=== PATIENT | female | born 1995 | race Caucasian/White ===

== ENCOUNTER 2023-06-12 09:06 | Outpatient (AMB) | payer OTHER, SELFPAY ==
--- NOTE | 2023-06-12 09:08 | A.OFFPC_ITS ---
Vital Signs 06/12/23 09:09 Height 5 ft 5 in Weight 206 lb BMI 34.3 BP 118/80 Blood Pressure Location Lt brachial Position Sitting Intake Visit Reasons: Turner Off Request PE Intake Note: New patient, physical exam Meeting Planner Required: No Accompanied by: Self / Same As Patient Allergies No Known Allergies Allergy (Verified 06/12/23 09:25) Medication List - Last Reconciled 06/12/23 by Purvi Delarosa MD No Known Home Meds Tobacco use date assessed: 06/12/23 Dental Screening Dental Screen Date: 06/12/23 Did you have a dental visit in the last 12 months?: No Did you have a dental problem in the last 6 months where you did not have access to dental care?: No Was dental information given to patient?: Patient has dentist HPI HPI Comments History of Present Illness Details This is a 27-year-old female that comes for her physical exam. No acute complaints. As per patient has never had a Pap smear but has an IUD place. No chest pain or shortness of breath. [facility] Surgical History No pertinent past surgical history Family History (Updated 06/12/23 @ 09:31 by Purvi Delarosa MD) Mother Hypertension Father No problems noted. Family/Other Substance use disorder Mental health disorder Maternal Grandmother Liver cancer Social History Housing: House Alcohol intake: never Patient Tobacco Use Status: Never used Tobacco e-Cigarette/Vaping Use: Never Used Second Hand Smoke Exposure: No service: No Current occupational status: employed Current occupational exposures/hazards: No Cognitive needs: No Hearing needs: No Vision needs: No Questionnaire PHQ-9 Over the last 2 weeks, how often have you been bothered by any of the following problems? 1. Little interest or pleasure in doing things: not at all 2. Feeling down, depressed, or hopeless: not at all 3. Trouble falling or staying asleep, or sleeping too much: not at all 4. Feeling tired or having little energy: not at all 5. Poor appetite or overeating: not at all 6. Feeling bad about yourself - or that you are a failure or have let yourself or your family down: not at all 7. Trouble concentrating on things, such as reading the newspaper or watching television: not at all 8. Moving or speaking so slowly that other people could have noticed. Or the o pposite - being so fidgety or restless that you have been moving around a lot more than usual: not at all 9. Thoughts that you would be better off or of hurting yourself in some way: not at all Total score: 0 Depression Screening Interpretation: Negative Depression Screening Done: Yes 39635 - PHQ-9 Billing: Yes Source: Developed by Drs. Kunal Su, Rashmi Saleem, Jonathan Diaz and colleagues, with an educational hadley from [employer]. Thrive Questionnaire Date Thrive assessed: 06/12/23 I am a: Patient What is your living situation today?: I have a steady place to live Within the past 12 months, did the food you bought not last and you didn't have the money to get more?: Never true Within the past 12 months, did you worry whether your food would run out before you got money to buy more?: Never true Do you have trouble paying for medicines?: No Do you have trouble getting transportation to medical appointments?: No Do you have trouble paying your heating and electricity bill?: No Do you have trouble taking care of your child, family member or friend?: No Do you have trouble with day-to-day activities such as bathing, preparing meals, shopping, managing finances, etc.?: No Are you currently unemployed and looking for a job?: No Are you interested in more education?: No Please select the resources that you would like help with: None Currently or been in a relationship where the following occur: no concerns reported THRIVE Score: 0 AUDIT C Alcohol Use Questionnaire (AUDIT-C) 1. How often do you have a drink containing alcohol?: Never Total Score: 0 Score Reviewed/Action Taken: No RODGER-7 AMB Questionnaire RODGER-7 Date RODGER - 7 assessed: 06/12/23 Feeling nervous, anxious, or on edge: 0 = Not at all Not being able to stop or control worryin = Not at all Worrying too much about different things: 0 = Not at all Trouble relaxin = Not at all Being so restless that it is hard to sit still: 0 = Not at all Becoming easily annoyed or irritable: 0 = Not at all Feeling afraid as if something awful might happen: 0 = Not at all Total RODGER-7 score (0-4 normal; 5-9 mild; 10-14 moderate; 15-21 severe): 0 Source: Developed by Drs. Kunal Su, Rashmi Saleem, Jonathan Diaz and colleagues, with an educational hadley from [employer]. RODGER-7 Assessment Billing RODGER-7 Assessment Tool: RODGER-7 Assessment 53687 Review of Systems Const All systems reviewed & are unremarkable except as noted in HPI and below Eyes Reports no additional complaints, Denies change in vision and Denies other visual disturbances Card Denies chest pain at rest, Denies chest pain with activity, Denies edema, Denies irregular heart rhythm, Denies claudication, Denies dyspnea, Denies dyspnea on exertion, Denies orthopnea, Denies paroxysmal nocturnal dyspnea and Denies slow heart rate Resp Denies cough, Denies dyspnea and Denies dyspnea on exertion GI Denies abdominal pain, Denies change in bowel habits, Denies excessive flatus, Denies nausea and Denies vomiting Denies urinary incontinence, Denies urinary hesitancy and Denies urinary urgency Neuro Denies confusion Psych Denies confusion Physical exam (Primary Care) Vital Signs: Last Vital Signs BP 118/80 06/12/23 09:09 BMI result Body Mass Index 34.3 Tobacco/Smoking Status: Tobacco use Status Tobacco use date assessed 06/12/23 06/12/23 09:16 Patient Tobacco Use Status Never used Tobacco 06/12/23 09:16 e-Cigarette/Vaping Use Never Used 06/12/23 09:16 PHQ-9: PHQ-9 Score PHQ-9: Total score 0 06/12/23 09:16 Depression Screening Interpretation: Negative Thrive Assessment: Date of Thrive Assessment Date Thrive assessed 06/12/23 06/12/23 09:16 Currently or been in a relationship where the following occur: no concerns reported Const General: No confusion Orientation/consciousness: patient oriented x3 and No confusion HENMT Head: Yes normal to inspection, Yes normocephalic and Yes atraumatic Ears: external ears normal Eyes General: appearance normal, both eyes and all related structures Eyelids: Yes eyelids normal Conjunctivae: conjunctivae normal Neck Neck: Yes normal visual inspection and Yes supple Resp Effort & Inspection: normal respiratory effort Auscultation: clear to auscultation bilaterally Cardio Jugular venous distension: no JVD Rate: regular rate Rhythm: regular rhythm Heart sounds: S1 normal heart sound present and S2 normal heart sound present GI Inspection: Yes normal to inspection Palpation (GI): Soft to palpation and nontender Auscultation: normal bowel sounds Skin General skin exam: no rashes or lesions noted Neuro General: patient oriented x3, no focal motor deficits and No confusion Extrem General: Yes full ROM Psych Appearance: grossly normal Assessment and Plan Assessment & Plan (1) Physical exam: Code(s): Z00.00 - Encounter for general adult medical examination without abnormal findings Plan: Repeat in a year. Orders: Orders Lipid Panel Today Z00.00 - Encounter for general adult medical examination without abnormal findings Comprehensive [place]. Panel Fast Today Z00.00 - Encounter for general adult medical examination without abnormal findings Referrals RETURNED CASE INSPECTOR Referral Z12.4 - Encounter for screening for malignant neoplasm of cervix Coding Level of Care Code Est Pt Prev Care 18-39y(59482) Diagnoses Physical exam Z00.00 Additional Codes RODGER-7 Assessment Billing - RODGER-7 Assessment Tool: RODGER-7 Assessment 58643 ([id number]) Time Spent (min) 30
[2023-06-12 09:09] VITALS: BP 118/80; BMI 34.3
== END 2023-06-12 09:39 | disposition home or self-care (01) ==
PROVIDERS: PCP Internal Medicine; Visit Provider Internal Medicine
DX: Z00.00 Encounter for general adult medical examination without abnormal findings (principal)
CPT/HCPCS: 99395

== ENCOUNTER 2024-06-23 08:28 | Outpatient (AMB) | payer OTHER, SELFPAY ==
--- NOTE | 2024-06-23 08:35 | MHC.PC.OV ---
Vital Signs 06/23/24 08:37 Height 5 ft 5 in Weight 203 lb BMI 33.8 BP 120/80 Blood Pressure Location Lt brachial Position Sitting Intake Visit Reasons: PE Intake Note: Patient here for a physical exam Counseling Center Director Required: No Accompanied by: Self / Same As Patient Allergies No Known Allergies Allergy (Verified 06/23/24 08:43) Medication List - Last Reconciled 06/23/24 by Purvi Delarosa MD No Known Home Meds Tobacco use date assessed: 06/23/24 Dental Screening Dental Screen Date: 06/23/24 Did you have a dental visit in the last 12 months?: No Did you have a dental problem in the last 6 months where you did not have access to dental care?: No Was dental information given to patient?: Patient has dentist HPI HPI Comments History of Present Illness Details The patient is a 28-year-old female presenting for a wellness check and physical examination. She reports a history of depression with a PHQ-9 score of 12, indicating moderate depression. She has a therapist but has not fully communicated her symptoms to them. The patient also experiences anxiety and reports episodes of chest pain and shortness of breath occurring at rest, which have been episodic and started recently. She has no known allergies and is not on any medications. She denies smoking or alcohol consumption. No past surgeries or significant childhood illnesses were mentioned. An unintentional weight gain was noted, as she started working on weight loss from 207 pounds. The patient mentioned having a lump in her neck which she noticed about a month ago. This lump causes occasional pain. No past documentation of related tests or procedures was provided. Family history is pertinent for essential hypertension and recently diagnosed diabetes in her mother. Her father when she was [age], with no known medical history. - Tdap vaccine last administered in 2015; next due in 2025. - Up-to-date with Pap smear, last performed last year. - Discussion of weight management, with emphasis on obesity reduction. - Blood work ordered for glucose, kidney, liver function, and cholesterol levels. [facility] Surgical History No pertinent past surgical history Family History (Updated 06/23/24 @ 08:48 by Purvi Delarosa MD) Mother Hypertension Diabetes mellitus Father No problems noted. Family/Other Substance use disorder Mental health disorder Maternal Grandmother Liver cancer Social History Housing: House Alcohol intake: never Patient Tobacco Use Status: Never used Tobacco e-Cigarette/Vaping Use: Never Used Second Hand Smoke Exposure: No service: No Current occupational status: employed Current occupational exposures/hazards: No Cognitive needs: No Hearing needs: No Vision needs: No Questionnaire PHQ-9 Over the last 2 weeks, how often have you been bothered by any of the following problems? 1. Little interest or pleasure in doing things: several days 2. Feeling down, depressed, or hopeless: several days 3. Trouble falling or staying asleep, or sleeping too much: nearly every day 4. Feeling tired or having little energy: nearly every day 5. Poor appetite or overeating: several days 6. Feeling bad about yourself - or that you are a failure or have let yourself or your family down: several days 7. Trouble concentrating on things, such as reading the newspaper or watching television: several days 8. Moving or speaking so slowly that other people could have noticed. Or the opposite - being so fidgety or restless that you have been moving around a lot more than usual: not at all 9. Thoughts that you would be better off or of hurting yourself in some way: several days Total score: 12 Depression Screening Interpretation: Positive Depression Screening Follow-up: Existing condition, Community Mental Health Worker F/U and Follow-up Visit Requested Depression Screening Done: Yes 37673 - PHQ-9 Billing: Yes Source: Developed by Drs. Kunal Su, Rashmi Saleem, Jonathan Diaz and colleagues, with an educational hadley from [employer]. Thrive Questionnaire Date Thrive assessed: 06/23/24 I am a: Patient What is your living situation today?: I have a steady place to live Within the past 12 months, did the food you bought not last and you didn't have the money to get more?: Never true Within the past 12 months, did you worry whether your food would run out before you got money to buy more?: Never true Do you have trouble paying for medicines?: No Do you have trouble getting transportation to medical appointments?: No Do you have trouble paying your heating and electricity bill?: No Do you have trouble taking care of your child, family member or friend?: No Do you have trouble with day-to-day activities such as bathing, preparing meals, shopping, managing finances, etc.?: No Are you currently unemployed and looking for a job?: No Are you interested in more education?: No Please select the resources that you would like help with: None Currently or been in a relationship where the following occur: No concerns reported THRIVE Score: 0 AUDIT C Alcohol Use Questionnaire (AUDIT-C) 1. How often do you have a drink containing alcohol?: Never Total Score: 0 Score Reviewed/Action Taken: No RODGER-7 AMB Questionnaire RODGER-7 Date RODGER - 7 assessed: 06/23/24 Feeling nervous, anxious, or on edge: 1 = Several days Not being able to stop or control worryin = Several days Worrying too much about different things: 3 = Nearly every day Trouble relaxin = Nearly every day Being so restless that it is hard to sit still: 1 = Several days Becoming easily annoyed or irritable: 1 = Several days Feeling afraid as if something awful might happen: 2 = More than half the days Total RODGER-7 score (0-4 normal; 5-9 mild; 10-14 moderate; 15-21 severe): 12 Source: Developed by Drs. Kunal Su, Rashmi Saleem, Jonathan Diaz and colleagues, with an educational hadley from [employer]. RODGER-7 Assessment Billing RODGER-7 Assessment Tool: RODGER-7 Assessment 99874 Review of Systems Const All systems reviewed & are unremarkable except as noted in HPI and below Card Denies chest pain at rest, Denies chest pain with activity, Denies edema, Denies irregular heart rhythm, Denies claudication, Denies dyspnea, Denies dyspnea on exertion, Denies orthopnea, Denies paroxysmal nocturnal dyspnea and Denies slow heart rate Resp Denies cough, Denies dyspnea and Denies dyspnea on exertion GI Denies abdominal pain, Denies change in bowel habits, Denies excessive flatus, Denies nausea and Denies vomiting Physical exam (Primary Care) Vital Signs: Last Vital Signs BP 120/80 06/23/24 08:37 BMI result Body Mass Index 33.8 BMI Assessment/Plan discussion: High BMI High, discussed plan: lifestyle, weight reduction, dietary and physical activity Tobacco/Smoking Status: Tobacco use Status Tobacco use date assessed 06/23/24 06/23/24 08:40 Patient Tobacco Use Status Never used Tobacco 06/23/24 08:36 e-Cigarette/Vaping Use Never Used 06/23/24 08:36 PHQ-9: PHQ-9 Score PHQ-9: Total score 12 06/23/24 08:36 Depression Screening Interpretation: Positive Depression Screening Follow-up: Existing condition, Community Mental Health Worker F/U and Follow-up Visit Requested Thrive Assessment: Date of Thrive Assessment Date Thrive assessed 06/23/24 06/23/24 08:36 Currently or been in a relationship where the following occur: No concerns reported HENMT Head: Yes normal to inspection, Yes normocephalic and Yes atraumatic Ears: external ears normal Eyes General: appearance normal, both eyes and all related structures Eyelids: Yes eyelids normal Conjunctivae: conjunctivae normal Neck Other: Right posterior lump Neck: Yes tender Resp Effort & Inspection: normal respiratory effort Auscultation: clear to auscultation bilaterally Cardio Jugular venous distension: no JVD Rate: regular rate Rhythm: regular rhythm Heart sounds: S1 normal heart sound present and S2 normal heart sound present GI Inspection: Yes normal to inspection Palpation (GI): Soft to palpation and nontender Auscultation: normal bowel sounds Skin General skin exam: no rashes or lesions noted Neuro General: no focal motor deficits Extrem General: Yes full ROM Psych Appearance: grossly normal Coding Level of Care Code Est Pt Level 3 (59178) Est Pt Prev Care 18-39y(22670) Diagnoses Physical exam Z00.00 Mild recurrent major depression F33.0 Lump in neck R22.1 Chest pain R07.9 Additional Codes PHQ-9 - 86657 - PHQ-9 Billing: Yes ([id number]) RODGER-7 Assessment Billing - RODGER-7 Assessment Tool: ROGDER-7 Assessment 01877 ([id number]) Time Spent (min) 35 Assessment & Plan Assessment & Plan (1) Physical exam: Code(s): Z00.00 - Encounter for general adult medical examination without abnormal findings Category: Medical (2) Mild recurrent major depression: Code(s): F33.0 - Major depressive disorder, recurrent, mild Category: Medical (3) Lump in neck: Code(s): R22.1 - Localized swelling, mass and lump, neck Category: Medical (4) Chest pain: Code(s): R07.9 - Chest pain, unspecified Category: Medical Plan I have ordered blood tests to check glucose levels, kidney and liver function, and lipid profile, considering her family history of diabetes and hypertension. I plan to conduct an EKG to examine the cause of her episodic chest pain and shortness of breath. I have advised an ultrasound for the lump in her neck for further evaluation. She is also encouraged to follow up with her therapist regarding her depression. Efforts to support weight reduction will be reinforced at subsequent visits. Patient was informed and verbally consented to the use of an ambient scribe for clinic note documentation during this visit. I discussed the patient's depression and anxiety, underlining the importance of therapy and potential medication adjustments if needed. We reviewed the upcoming tests, including blood work and ultrasound of the neck lump, explaining how these assist in clarifying her health status. We addressed that the EKG was a precautionary step for chest pain and shortness of breath, ensuring no underlying cardiac conditions. I encouraged continued engagement in a weight management program and advised discussing specific goals and methods at the following appointment. No numerical risk predictions were provided, yet, given the indication for regularly evaluating her physical health metrics. Orders: Orders ECG 12 lead EKG Today R07.9 - Chest pain, unspecified US soft tiss head and/or neck Today R22.1 - Localized swelling, mass and lump, neck Complete Blood Count Auto Diff Today R22.1 - Localized swelling, mass and lump, neck Lipid Panel Today Z00.00 - Encounter for general adult medical examination without abnormal findings Comprehensive [place]. Panel Fast Today Z00.00 - Encounter for general adult medical examination without abnormal findings Patient Instructions: - Complete the blood tests for sugar, kidneys, liver, and cholesterol. - Schedule and complete the EKG. - Plan for an ultrasound of the neck. - Keep talking to your therapist regarding depression and anxiety. - Focus on your weight loss goals; follow the diet and exercise plan. - Follow up with any changes in symptoms or if new concerns arise.
[2024-06-23 08:37] VITALS: BP 120/80; BMI 33.8
== END 2024-06-23 08:58 | disposition home or self-care (01) ==
PROVIDERS: PCP Internal Medicine; Visit Provider Internal Medicine
DX: Z00.00 Encounter for general adult medical examination without abnormal findings (principal); F33.0 Major depressive disorder, recurrent, mild; R22.1 Localized swelling, mass and lump, neck; R07.9 Chest pain, unspecified

== ENCOUNTER → 2024-06-23 08:28 | Outpatient (REF) | payer OTHER, SELFPAY ==
--- NOTE | 2024-06-23 09:20 | ECG_ITS ---
Test Reason : CHEST PAIN Blood Pressure : */* mmHG Vent. Rate : 71 BPM Atrial Rate : 71 BPM P-R Int : 130 ms QRS Dur : 80 ms QT Int : 396 ms P-R-T Axes : 25 9 8 degrees QTcB Int : 430 ms Normal sinus rhythm Normal ECG No previous ECGs available Referred By: Purvi Delarosa Electronically Signed By: Jerry Henry
[2024-06-23 09:21] LABS: MANUAL DIFF FLAG NO
[2024-06-23 09:42] LABS: Basophils Percent Auto 0.7 % (0-2); Eosinophils Absolute Auto 0.3 X10*3/uL (0.0-0.4); Hematocrit 38.1 % (37.0-47.0); Hemoglobin 13.1 g/dl (12.0-16.0); Imm Gran Abs Auto 0.01 X10*3/uL (0.00-0.03); Imm Gran Pct Auto 0.2 % (0.0-0.4); Lymphocytes Absolute Auto 1.7 X10*3/uL (1.2-4.9); Lymphocytes Percent Auto 30.4 % (20-40); Mean Corpuscular HGB Conc 34.4 g/dl (31.0-35.0); Mean Corpuscular Hemoglobin 28.5 pg (27.0-33.0); Mean Corpuscular Volume 82.8 fL (80.0-98.0); Mean Platelet Volume 9.4 fL (9.4-12.3); Monocytes Absolute Auto 0.4 X10*3/uL (0.1-1.2); Monocytes Percent Auto 7.9 % (2-11); Neutrophils Percent Auto 55.8 % (45-73); Platelet Count 409 X10*3/uL (160-400); White Blood Count 5.4 X10*3/uL (4.8-10.8)
[2024-06-23 10:12] LABS: Alanine Aminotransferase 25 U/L (0-31); Albumin Level 4.3 g/dL (3.5-5.0); Alkaline Phosphatase 77 U/L (39-117); Anion Gap 11 (12-20); Aspartate Amino Transferase 21 U/L (5-31); Bilirubin Total 0.7 mg/dL (0.0-1.0); Blood Urea Nitrogen 4 mg/dL (9-16); Calcium 9.3 mg/dL (8.4-10.2); Carbon Dioxide 24 mmol/L (22-29); Chloride 108 mmol/L (96-108); Cholesterol 147 mg/dL (<200); Estimated Glomerular Filt Rate > 60; Glucose Fasting 96 mg/dL (60-99); HDL Cholesterol 42 mg/dL (>40); LDL Cholesterol Calculated 91 mg/dL (<100); Potassium 3.7 mmol/L (3.3-5.1); Sodium 139 mmol/L (135-145); Total Protein 7.3 g/dL (6.5-8.0); Triglycerides 74 mg/dL (<150)
== END ==
LOC: HO.CARD 08:28
PROVIDERS: PCP Internal Medicine; Visit Provider Internal Medicine
DX: R22.1 Localized swelling, mass and lump, neck (principal); R07.9 Chest pain, unspecified; Z00.00 Encounter for general adult medical examination without abnormal findings
CPT/HCPCS: 36415; 80053; 80061; 85025; 93005

== ENCOUNTER → 2024-06-23 09:20 | Outpatient (BNV) | payer OTHER, SELFPAY | PROVIDERS: PCP Internal Medicine; Visit Provider Internal Medicine Cardiovascular Disease | DX: R07.9 Chest pain, unspecified (principal) | CPT/HCPCS: 93010 ==

== ENCOUNTER 2024-07-16 08:37 | Outpatient (REF) | payer OTHER, SELFPAY ==
--- NOTE | ~2024-07-16 | US_ITS ---
EXAMINATION: US SOFT TISSUE HEAD AND NECK. LIMITED. CLINICAL INFORMATION: Lump in the right posterior neck.. COMPARISON: None available. TECHNIQUE: Linear transducer sosa-scale and color Doppler examination with attention to the right posterior neck.. FINDINGS: There are few, nonspecific prominent lymph nodes with fatty hilum measuring range: 0.7-1.2 cm. No gross masses or fluid collections in the interrogated area. US/US soft tiss head and/or neck IMPRESSION: Specific mildly prominent lymph nodes, right posterior neck.. Electronically signed by: Gasper Allan MD 07/16/2024 09:05 AM EDT
== END 2024-07-16 08:38 | disposition home or self-care (01) ==
LOC: HO.HMGCX 08:37
PROVIDERS: PCP Internal Medicine; Visit Provider Internal Medicine
DX: R22.1 Localized swelling, mass and lump, neck (principal)
CPT/HCPCS: 76536

== ENCOUNTER → 2024-07-16 08:42 | Outpatient (BNV) | payer OTHER, SELFPAY | PROVIDERS: PCP Internal Medicine; Visit Provider Radiology Diagnostic Radiology | DX: R22.1 Localized swelling, mass and lump, neck (principal) | CPT/HCPCS: 76536 ==

== ENCOUNTER 2024-10-09 11:27 | Outpatient (REF) | payer BC, SELFPAY ==
--- NOTE | ~2024-10-09 | US_ITS ---
CLINICAL HISTORY: R22.1 - Localized swelling, mass and lump, neck US right neck nonvascular Comparison: US/SR - US SOFT TISS HEAD AND/OR NECK - 07/16/24 08:47 EDT Findings: Sonographic evaluation of the right neck demonstrates a morphologically benign right inferior auricular lymph node with a central fatty hilum mild cortical thickening without cortical disruption measuring 1.0 x 0.7 x 0.7 cm. Similar-appearing level right 5A lymph node with cortical thickening is probably reactive as well measuring 0.6 x 0.4 x 0.5 cm Impression: Probable reactive cervical lymph nodes on the right as described This document has been electronically signed by: Kevin Campos MD on 10/09/2024 13:00:34
== END 2024-10-09 11:28 | disposition home or self-care (01) ==
LOC: HO.HMGCX 11:27
PROVIDERS: PCP Internal Medicine; Visit Provider Internal Medicine
DX: R22.1 Localized swelling, mass and lump, neck (principal)
CPT/HCPCS: 76536

== ENCOUNTER → 2024-10-09 11:34 | Outpatient (BNV) | payer BC, SELFPAY | PROVIDERS: PCP Internal Medicine; Visit Provider Radiology Diagnostic Radiology | DX: R22.1 Localized swelling, mass and lump, neck (principal) | CPT/HCPCS: 76536 ==

== ENCOUNTER 2025-01-28 16:55 | Outpatient (AMB) | payer OTHER, SELFPAY ==
[2025-01-28 16:56] VITALS: BP 130/74; PULSE 79; RESP 18; O2SAT 98; BMI 35.0
--- NOTE | 2025-01-28 16:56 | A.OFFPC_ITS ---
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 The headaches started around April, with the longest episode lasting 11 days. They are located mostly in the frontal region, predominantly on the left side but can be bilateral, and are associated with photophobia, particularly triggered by bright lights while driving at night. Ibuprofen and sleep do not alleviate the headaches, and there are no associated triggers such as perfumes, chocolates, or spices, nor any unilateral weakness. Her mother has a history of migraines. The patient also has a persistent lymph node in the right posterior neck, which was first noted in June. An ultrasound in June described it as a mildly prominent lymph node, and a repeat ultrasound in September noted a reactive cervical lymph node measuring 1 x 0.7 x 0.7 cm. She has not previously seen a surgeon for this issue. Past medical history is positive for asthma, which sometimes acts up, with an episode of wheezing a few nights ago. Her mother and great-grandmother both have diabetes, and a blood sugar check in May was normal. She reports no known drug allergies and takes no regular medications. [facility] Surgical History No pertinent past surgical history Family History Mother Hypertension Diabetes mellitus Father No problems noted. Family/Other Substance use disorder Mental health disorder Maternal Grandmother Liver cancer Social History Housing: House Alcohol intake: never Patient Tobacco Use Status: Never used Tobacco e-Cigarette/Vaping Use: Never Used Second Hand Smoke Exposure: No service: No Current occupational status: employed Current occupational exposures/hazards: No Cognitive needs: No Hearing needs: No Vision needs: No Questionnaire Thrive Questionnaire Date Thrive assessed: 06/23/24 RODGER-7 AMB Questionnaire RODGER-7 Date RODGER - 7 assessed: 06/23/24 Source: Developed by Drs. Kunal Su, Rashmi Saleem, Jonathan Diaz and colleagues, with an educational hadley from [employer]. Review of Systems Const All systems reviewed & are unremarkable except as noted in HPI and below Card Denies chest pain at rest, Denies chest pain with activity, Denies edema, Denies irregular heart rhythm, Denies claudication, Denies dyspnea, Denies dyspnea on exertion, Denies orthopnea, Denies paroxysmal nocturnal dyspnea and Denies slow heart rate Resp Denies cough, Denies dyspnea and Denies dyspnea on exertion Physical exam (Primary Care) Vital Signs: Last Vital Signs Pulse 79 01/28/25 16:56 Resp 18 01/28/25 16:56 BP 130/74 01/28/25 16:56 Pulse Ox 98 01/28/25 16:56 Oxygen Delivery Method Room Air 01/28/25 16:56 BMI result Body Mass Index 35.0 Tobacco/Smoking Status: Tobacco use Status Tobacco use date assessed 01/28/25 01/28/25 17:04 Patient Tobacco Use Status Never used Tobacco 01/28/25 17:04 e-Cigarette/Vaping Use Never Used 01/28/25 17:04 Thrive Assessment: Date of Thrive Assessment Date Thrive assessed 06/23/24 01/28/25 17:04 Resp Effort & Inspection: normal respiratory effort Auscultation: clear to auscultation bilaterally Cardio Jugular venous distension: no JVD Rate: regular rate Rhythm: regular rhythm Heart sounds: S1 normal heart sound present and S2 normal heart sound present Coding Level of Care Code Complex visit Add On G2211 Diagnoses Persistent headaches R51.9 Mild persistent asthma J45.30 Head and neck lymphadenopathy R59.1 Time Spent (min) 19 Assessment & Plan Assessment & Plan (1) Persistent headaches: Code(s): R51.9 - Headache, unspecified Category: Medical (2) Mild persistent asthma: Code(s): J45.30 - Mild persistent asthma, uncomplicated Category: Medical (3) Head and neck lymphadenopathy: Code(s): R59.1 - Generalized enlarged lymph nodes Category: Medical Plan Plan 1. Headache Given the patient's symptoms of photophobia and a family history of migraines, her headaches are suspicious for migraine. An MRI of the brain will be ordered to rule out other underlying pathology. A referral will be placed to Neurology for further evaluation and management. A prescription medication for headaches will be sent to the pharmacy. The patient was also advised on the potential benefit of magnesium glycinate 300 mg, available [id number], for headache prevention. 2. Right Cervical Lymphadenopathy The patient has a persistent right cervical lymph node since at least June, which has been stable on prior ultrasounds. Due to its persistence, an updated ultrasound of the neck soft tissue has been ordered, and a referral will be made to Surgery for evaluation. 3. Asthma The patient reports a history of asthma with recent mild symptoms and requested inhalers to have available. Three medications, likely including rescue inhalers, will be prescribed. 4. Health Maintenance The patient requested screening labs due to a family history of diabetes and a desire to check thyroid function. Bloodwork will be ordered to check her blood sugar and thyroid levels. Orders: Orders MR head/brain wo con Today R51.9 - Headache, unspecified US soft tiss head and/or neck Today R59.1 - Generalized enlarged lymph nodes Thyroid Stimulating Hormone Today E66.812 - Obesity, class 2 Comprehensive [place]. Panel Fast Today R22.1 - Localized swelling, mass and lump, neck Referrals General Surgery Referral R59.1 - Generalized enlarged lymph nodes Neurology Referral R51.9 - Headache, unspecified Medications: New albuterol sulfate 90 mcg/actuation (Ventolin HFA) 2 puffs inhalation Q6H PRN 6.7 grams 0RF shortness of breath or wheezing 30 days J45.30 - Mild persistent asthma, uncomplicated sumatriptan succinate do not exceed 8 doses per 24 hrs 25 mg PO Q2-4H PRN 9 tabs 1RF migraine headache 30 days magnesium glycinate 300 mg (3 x 100 mg magnesium) PO BEDTIME 270 caps 1RF 90 days
== END 2025-01-28 17:19 | disposition home or self-care (01) ==
LOC: HO.HMCH 16:55
PROVIDERS: PCP Internal Medicine; Visit Provider Internal Medicine
DX: R51.9 Headache, unspecified (principal); J45.30 Mild persistent asthma, uncomplicated; R59.1 Generalized enlarged lymph nodes

== ENCOUNTER 2025-02-03 10:24 | Outpatient (AMB) | payer OTHER, SELFPAY ==
[2025-02-03 10:33] VITALS: BP 131/61; PULSE 86; BMI 35.8
--- NOTE | 2025-02-03 10:33 | A.OFFVIS_ITS ---
Vital Signs 02/03/25 10:33 Height 5 ft 5 in Weight 215 lb BMI 35.8 BP 131/61 Blood Pressure Location Rt brachial Position Sitting Pulse 86 Intake Visit Reasons: Generalized enlarged lymph nodes Intake Note: Patient referred by PCP Dr. Jose Delarosa for assessment of generalized enlarged lymph nodes on Rt post neck. First noticed about 1yr ago. Patient c/o: at time painful to touch but not recently. Feels like always tired. Imaging: US head and neck~ 10-09-2024 Pneumatic Riveter Required: No Accompanied by: Self / Same As Patient Allergies No Known Allergies Allergy (Verified 01/28/25 17:06) Medication List - Last Reconciled 02/03/25 by Roque Cruz MD albuterol sulfate 90 mcg/actuation (Ventolin HFA) 2 puffs inhalation Q6H PRN 30 days magnesium glycinate 300 mg (3 x 100 mg magnesium) PO BEDTIME 90 days sumatriptan succinate 25 mg PO Q2-4H PRN 30 days HPI Comments Details: 29-year-old female presents for consideration of right-sided cervical lymphadenopathy. She reports that she noticed a ?lump? in her neck on the right side for over a year. She goes on to say ?it gets bigger and smaller does not really changed all that much but it is still there.? She has an ultrasound that it is indicative of normal-appearing reactive lymph nodes with the most obvious to at 5 a on the right side. 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 She does report some allergies and occasional seasonal colds but has no chronic recurrent systemic sequelae or other inflammatory eyes nose or throat issues. [facility] Medical History (Updated 02/03/25 @ 10:40 by NIRU Bella) Asthma Migraine headache Surgical History No pertinent past surgical history Family History Mother Hypertension Diabetes mellitus Father No problems noted. Family/Other Substance use disorder Mental health disorder Maternal Grandmother Liver cancer Social History Housing: House Alcohol intake: never Patient Tobacco Use Status: Never used Tobacco e-Cigarette/Vaping Use: Never Used Second Hand Smoke Exposure: No service: No Current occupational status: employed Current occupational exposures/hazards: No Cognitive needs: No Hearing needs: No Vision needs: No Review of Systems Const All systems reviewed & are unremarkable except as noted in HPI and below Physical Exam Vital Signs: Last Vital Signs Pulse 86 02/03/25 10:33 BP 131/61 02/03/25 10:33 BMI result Body Mass Index 35.8 Const General: cooperative, healthy appearing and comfortable Nutritional Appearance: obese morbidly obese Orientation/consciousness: oriented to person, oriented to place and oriented to time HEENT Head: Yes normal to inspection Eyes General: appearance normal, both eyes and all related structures Pupils: Equal, round and reactive pupils present EOM: EOMs intact bilaterally Neck Other: To palpable lymph nodes of the right side at level 5 a approximate 1 cm in diameter each. Nontender no corresponding skin change. Chest Chest palpation & inspection: normal inspection of the chest Resp Effort & Inspection: normal respiratory effort and able to speak in complete sentences Cardio Rate: regular rate Rhythm: regular rhythm GI Inspection: Yes normal to inspection Skin General skin exam: no rashes or lesions noted Neuro General: oriented to person, oriented to place and oriented to time Cranial nerves: Yes CN's II-XII intact bilaterally and Yes Equal, round and reactive pupils present Assessment & Plan Assessment & Plan (1) Head and neck lymphadenopathy: Code(s): R59.1 - Generalized enlarged lymph nodes Category: Medical Plan: I told the patient that her concerning issue was larger outside of my customary scope of practice. I reassured her that the ultrasound report read the lymph nodes as being normal but reactive. Be that as it may I think the input from otolaryngology would be appropriate and we will see if we can make a referral to ENT to that end. In the meantime she is encouraged to contact us should she have any questions or problems. She said she was happy with that plan. Orders: Referrals Ear/Nose/Throat Referral R22.1 - Localized swelling, mass and lump, neck Coding Level of Care Code New Pt Level 3 (62098) Diagnoses Head and neck lymphadenopathy R59.1 Time Spent (min) 30 Comment Patient visit record review and coordination of care time
== END 2025-02-03 10:45 | disposition home or self-care (01) ==
LOC: HO.HGS 10:25
PROVIDERS: PCP Internal Medicine; Visit Provider Surgery
DX: R59.1 Generalized enlarged lymph nodes (principal)
CPT/HCPCS: 99203